=== PATIENT | female | born 1945 | race Caucasian/White ===

== ENCOUNTER 2022-05-11 19:33 | Inpatient (IN) ==
[2022-05-11] MEDS ORDERED: SODIUM CHLORIDE 0.9% 500 ML IV STA (20:13)
[2022-05-11] MEDS ORDERED: PANTOPRAZOLE 40 MG VIAL IV STA (20:13)
[2022-05-11] MEDS ORDERED: ONDANSETRON 4 MG/2 ML VIAL IV STA (20:13)
[2022-05-11 20:51] LABS: Basophils % 0.4 % (0.0-0.8); Eosinophils % 0.8 % (0.00-10.9); Hematocrit 29.3 VOL% (35.7-47.0); Hemoglobin 8.7 GM/DL (12.0-16.0); Immature Granulocytes % 0.2 %; Immature Granulocytes Absolute 0.01 #; Lymphocytes # 0.8 10*3/uL (1.4-4.0); Lymphocytes % 15.4 % (21.3-54.2); Mean Corpuscular HGB Conc 29.7 GM/DL (32-36); Mean Corpuscular Volume 80.9 FL (87-102); Mean Platelet Volume 11.6 FL (9.6-12.0); Monocytes # 0.4 10*3/uL (0.11-0.8); Monocytes % 8.1 % (1.7-12.7); Neutrophils % 75.1 % (38.7-73.9); Platelet Count 195 T/CUMM (130-400); Red Blood Count 3.62 MC/CUMM (3.8-5.5); Red Cell Distribution Width 15.7 % (9.3-17.3); White Blood Count 5.2 T/CUMM (4-12)
[2022-05-11 21:09] LABS: INR 3.4; PT Patient Result 34.2 SECS (10.5-12.0)
[2022-05-11 21:15] LABS: Alanine Aminotransferase 17 U/L (13-56); Albumin 3.5 G/DL (3.4-5.0); Alkaline Phosphatase 92 U/L (45-117); Aspartate Amino Transferase 19 U/L (0-37); Bilirubin,Total < 0.39 MG/DL (0.20-1.00); Blood Urea Nitrogen 29 MG/DL (7-18); Calcium 8.6 MG/DL (8.5-10.1); Carbon Dioxide 27 MMOL/L (21-32); Chloride 110 MMOL/L (98-107); Glucose 92 MG/DL (74-106); Osmolality,Calculated 286.3 MOS/KG (273-304); Potassium 4.1 MMOL/L (3.5-5.1); Sodium 141 MMOL/L (136-145); Total Protein 6.1 G/DL (6.4-8.2)
[2022-05-11] MEDS ORDERED: ONDANSETRON 4 MG/2 ML VIAL IV PRN (22:59)
[2022-05-11] MEDS ORDERED: GLUCAGON 1 MG VIAL IM PRN (22:59)
[2022-05-11] MEDS ORDERED: NICOTINE 21 MG/24 HR PATCH TRANSDERM PRN (22:59)
[2022-05-11] MEDS ORDERED: DEXTROSE 10% 250 ML BAG IV PRN (23:08)
[2022-05-12 00:48] LABS: Hematocrit 28.9 VOL% (35.7-47.0); Hemoglobin 8.8 GM/DL (12.0-16.0)
[2022-05-12] MEDS: LACTATED RINGERS 1,000 ML IV SCH ×3 (01:24→21:56)
[2022-05-12 05:37] LABS: Basophils % 0.6 % (0.0-0.8); Eosinophils # 0.1 10*3/uL (0.0-0.87); Eosinophils % 1.7 % (0.00-10.9); Hematocrit 26.2 VOL% (35.7-47.0); Hemoglobin 7.5 GM/DL (12.0-16.0); Immature Granulocytes % 0.6 %; Immature Granulocytes Absolute 0.02 #; Lymphocytes # 0.8 10*3/uL (1.4-4.0); Lymphocytes % 22.1 % (21.3-54.2); Mean Corpuscular HGB Conc 28.6 GM/DL (32-36); Mean Corpuscular Volume 82.4 FL (87-102); Mean Platelet Volume 12.6 FL (9.6-12.0); Monocytes # 0.3 10*3/uL (0.11-0.8); Monocytes % 8.9 % (1.7-12.7); Neutrophils % 66.1 % (38.7-73.9); Platelet Count 171 T/CUMM (130-400); Red Blood Count 3.18 MC/CUMM (3.8-5.5); Red Cell Distribution Width 15.5 % (9.3-17.3); White Blood Count 3.6 T/CUMM (4-12)
[2022-05-12] MEDS: THYROID 60 MG TABLET PO SCH (05:54)
[2022-05-12 06:00] LABS: Calcium 8.2 MG/DL (8.5-10.1); Potassium 3.8 MMOL/L (3.5-5.1)
[2022-05-12] MEDS ORDERED: SODIUM CHLORIDE 0.9% 1,000 ML IV PRN (07:30)
[2022-05-12] MEDS: PANTOPRAZOLE 40 MG VIAL IV SCH ×2 (10:00→20:23)
[2022-05-12] MEDS: CHOLECALCIFEROL 1,000 UNIT TABLET PO SCH (13:13)
[2022-05-12 13:44] LABS: INR 3.5; PT Patient Result 35.8 SECS (10.5-12.0)
[2022-05-12 22:47] LABS: Hematocrit 30.5 VOL% (35.7-47.0); Hemoglobin 9.1 GM/DL (12.0-16.0)
[2022-05-13 05:02] LABS: Basophils % 0.5 % (0.0-0.8); Eosinophils # 0.1 10*3/uL (0.0-0.87); Eosinophils % 2.4 % (0.00-10.9); Hematocrit 30.9 VOL% (35.7-47.0); Hemoglobin 9.4 GM/DL (12.0-16.0); Immature Granulocytes % 0.3 %; Immature Granulocytes Absolute 0.01 #; Lymphocytes # 0.7 10*3/uL (1.4-4.0); Lymphocytes % 19.8 % (21.3-54.2); Mean Corpuscular HGB Conc 30.4 GM/DL (32-36); Mean Corpuscular Volume 77.4 FL (87-102); Mean Platelet Volume 11.3 FL (9.6-12.0); Monocytes # 0.3 10*3/uL (0.11-0.8); Platelet Count 170 T/CUMM (130-400); Red Blood Count 3.99 MC/CUMM (3.8-5.5); Red Cell Distribution Width 18.1 % (9.3-17.3); White Blood Count 3.7 T/CUMM (4-12)
[2022-05-13] MEDS: THYROID 60 MG TABLET PO SCH (05:12)
[2022-05-13 05:24] LABS: INR 3.4; PT Patient Result 34.5 SECS (10.5-12.0)
[2022-05-13 06:38] LABS: Microcytosis 1+; Platelet Estimate Adequate
[2022-05-13] MEDS: LACTATED RINGERS 1,000 ML IV SCH ×3 (08:27→15:21)
[2022-05-13] MEDS: lisinopriL 10 MG TABLET PO SCH (09:12)
[2022-05-13] MEDS: CHOLECALCIFEROL 1,000 UNIT TABLET PO SCH (09:12)
[2022-05-13] MEDS: PANTOPRAZOLE 40 MG VIAL IV SCH ×2 (09:12→20:58)
[2022-05-14] MEDS: THYROID 60 MG TABLET PO SCH (05:13)
[2022-05-14 05:37] LABS: INR 2.1; PT Patient Result 21.6 SECS (10.5-12.0)
[2022-05-14] MEDS: CHOLECALCIFEROL 1,000 UNIT TABLET PO SCH (08:35)
[2022-05-14] MEDS: PANTOPRAZOLE 40 MG VIAL IV SCH (08:35)
[2022-05-14] MEDS: lisinopriL 10 MG TABLET PO SCH (08:35)
[2022-05-14 12:17] VITALS: BP 124/52
== END 2022-05-14 15:30 | disposition home or self-care (01) | DRG 378 ==
LOC: EDBD → EDUNIT# → N.ED 19:33 → N.TELEN 19:33 → SUATTDRO 05-12 07:13
PROVIDERS: ADMIT Internal Medicine; ATTEND Family Medicine

== ENCOUNTER 2022-08-16 15:15 | Inpatient (IN) ==
[2022-08-16 17:03] LABS: Alanine Aminotransferase 17 U/L (13-56); Albumin 3.4 G/DL (3.4-5.0); Alkaline Phosphatase 103 U/L (45-117); Aspartate Amino Transferase 19 U/L (0-37); Bilirubin,Total < 0.39 MG/DL (0.20-1.00); Blood Urea Nitrogen 28 MG/DL (7-18); Calcium 8.6 MG/DL (8.5-10.1); Carbon Dioxide 24 MMOL/L (21-32); Chloride 110 MMOL/L (98-107); Glucose 103 MG/DL (74-106); Osmolality,Calculated 284.4 MOS/KG (273-304); Potassium 4.2 MMOL/L (3.5-5.1); Sodium 140 MMOL/L (136-145); Total Protein 6.2 G/DL (6.4-8.2)
[2022-08-16 17:04] LABS: PT Patient Result 51.8 SECS (10.1-12.1)
[2022-08-16 17:10] LABS: INR 5.3
[2022-08-16 20:09] LABS: Basophils % 0.5 % (0.0-0.8); Eosinophils # 0.2 10*3/uL (0.0-0.87); Eosinophils % 2.8 % (0.00-10.9); Immature Granulocytes % 0.4 %; Immature Granulocytes Absolute 0.02 #; Lymphocytes # 0.7 10*3/uL (1.4-4.0); Lymphocytes % 12.1 % (21.3-54.2); Mean Corpuscular HGB Conc 26.9 GM/DL (32-36); Mean Corpuscular Volume 65.5 FL (87-102); Monocytes # 0.3 10*3/uL (0.11-0.8); Neutrophils % 78.2 % (38.7-73.9); Platelet Count 186 T/CUMM (130-400); Red Blood Count 2.67 MC/CUMM (3.8-5.5); Red Cell Distribution Width 17.9 % (9.3-17.3); White Blood Count 5.6 T/CUMM (4-12)
[2022-08-16 20:11] LABS: Hemoglobin 4.7 GM/DL (12.0-16.0)
[2022-08-16] MEDS ORDERED: SODIUM CHLORIDE 0.9% 1,000 ML IV PRN (20:11)
[2022-08-16 20:12] LABS: Hematocrit 17.5 VOL% (35.7-47.0)
[2022-08-16] MEDS ORDERED: PANTOPRAZOLE INJ 80 MG in SODIUM CHLORIDE 0.9% 100 ML IV ONE ×2 (20:12→23:30)
[2022-08-16] MEDS ORDERED: ACETAMINOPHEN 325 MG TABLET PO PRN (20:15)
[2022-08-16 21:29] LABS: Mucus,Urine Occasional /LPF (Occasional); RBC,Urine 1 /HPF (0-4); Squamous Epithelial Cell,Urine Occasional /HPF (0-10); Urine Appearance Clear (Clear); Urine Color Yellow (Yellow)
[2022-08-16 21:30] LABS: Bilirubin,Urine Negative (Negative); Blood, Urine Negative (Negative); Glucose,Urine (UA) Negative (Negative); Ketones,Urine 15 mg/dL (Negative); Nitrite,Urine Negative (Negative); Protein,Urine Negative (Negative); Urine Urobilinogen 0.2 eU/dL (<2.0)
[2022-08-16 21:51] LABS: % Iron Saturation 2.6 % (18-50); Ferritin 6.5 ng/mL (8-252)
[2022-08-16] MEDS ORDERED: PANTOPRAZOLE 40 MG VIAL IV ONE (23:26)
[2022-08-17] MEDS: LACTATED RINGERS 1,000 ML IV SCH ×3 (01:05→18:07)
[2022-08-17] MEDS: PANTOPRAZOLE INJ 200 MG in SODIUM CHLORIDE 0.9% 250 ML IV SCH (03:12)
[2022-08-17 05:19] LABS: Basophils % 0.9 % (0.0-0.8); Eosinophils # 0.2 10*3/uL (0.0-0.87); Eosinophils % 4.4 % (0.00-10.9); Hematocrit 22.6 VOL% (35.7-47.0); Hemoglobin 6.5 GM/DL (12.0-16.0); Immature Granulocytes % 0.7 %; Immature Granulocytes Absolute 0.03 #; Lymphocytes # 0.6 10*3/uL (1.4-4.0); Lymphocytes % 12.4 % (21.3-54.2); Mean Corpuscular HGB Conc 28.8 GM/DL (32-36); Mean Corpuscular Volume 72.2 FL (87-102); Monocytes # 0.4 10*3/uL (0.11-0.8); Monocytes % 8.2 % (1.7-12.7); Neutrophils % 73.4 % (38.7-73.9); Platelet Count 175 T/CUMM (130-400); Red Blood Count 3.13 MC/CUMM (3.8-5.5); White Blood Count 4.5 T/CUMM (4-12)
[2022-08-17 05:42] LABS: INR 4.5; PT Patient Result 44.9 SECS (10.1-12.1)
[2022-08-17 07:36] LABS: Hematocrit 28.4 VOL% (35.7-47.0)
[2022-08-17 07:45] LABS: Hemoglobin 8.4 GM/DL (12.0-16.0)
[2022-08-17] MEDS: FERRIC GLUCONATE COMPLEX 125 MG in SODIUM CHLORIDE 0.9% 100 ML IV SCH (10:13)
[2022-08-17 13:20] LABS: Hematocrit 26.2 VOL% (35.7-47.0); Hemoglobin 7.7 GM/DL (12.0-16.0)
[2022-08-17 19:37] LABS: Hematocrit 25.9 VOL% (35.7-47.0); Hemoglobin 7.6 GM/DL (12.0-16.0)
[2022-08-18 01:37] LABS: Hematocrit 22.9 VOL% (35.7-47.0); Hemoglobin 6.8 GM/DL (12.0-16.0)
[2022-08-18 01:45] LABS: PT Patient Result 39.7 SECS (10.1-12.1)
[2022-08-18 02:01] LABS: Calcium 8.2 MG/DL (8.5-10.1); Potassium 3.1 MMOL/L (3.5-5.1)
[2022-08-18 02:04] LABS: Risk Ratio 2.18; VLDL Cholesterol 10.4 MG/DL
[2022-08-18] MEDS ORDERED: SODIUM CHLORIDE 0.9% 1,000 ML IV PRN (02:05)
[2022-08-18] MEDS ORDERED: POTASSIUM CHLORIDE 20 MEQ TABLET PO ONE (02:30)
[2022-08-18] MEDS: LACTATED RINGERS 1,000 ML IV SCH (04:47)
[2022-08-18] MEDS: PANTOPRAZOLE INJ 200 MG in SODIUM CHLORIDE 0.9% 250 ML IV SCH (04:48)
[2022-08-18] MEDS: CHOLECALCIFEROL 1,000 UNIT TABLET PO SCH (08:48)
[2022-08-18] MEDS: lisinopriL 10 MG TABLET PO SCH (08:48)
[2022-08-18] MEDS: THYROID 60 MG TABLET PO SCH (08:50)
[2022-08-18] MEDS: FERRIC GLUCONATE COMPLEX 125 MG in SODIUM CHLORIDE 0.9% 100 ML IV SCH (11:03)
[2022-08-18 11:26] LABS: Basophils % 0.7 % (0.0-0.8); Eosinophils # 0.3 10*3/uL (0.0-0.87); Eosinophils % 4.7 % (0.00-10.9); Hematocrit 35.6 VOL% (35.7-47.0); Hemoglobin 10.9 GM/DL (12.0-16.0); Immature Granulocytes % 1.3 %; Immature Granulocytes Absolute 0.07 #; Lymphocytes # 0.6 10*3/uL (1.4-4.0); Lymphocytes % 11.8 % (21.3-54.2); Mean Corpuscular HGB Conc 30.6 GM/DL (32-36); Mean Corpuscular Volume 75.7 FL (87-102); Monocytes # 0.3 10*3/uL (0.11-0.8); Monocytes % 5.8 % (1.7-12.7); NRBC # 0.02 10*3/uL; Neutrophils % 75.7 % (38.7-73.9); Platelet Count 182 T/CUMM (130-400); Red Cell Distribution Width 22.2 % (9.3-17.3); White Blood Count 5.4 T/CUMM (4-12)
[2022-08-18 12:25] LABS: Anisocytosis 1+; Hypochromia 1+; Microcytosis 1+; Polychromasia 1+
[2022-08-18 12:26] LABS: Platelet Estimate Adequate
[2022-08-18 17:19] LABS: Hematocrit 34.4 VOL% (35.7-47.0); Hemoglobin 10.8 GM/DL (12.0-16.0)
[2022-08-18 23:19] LABS: Hemoglobin 9.5 GM/DL (12.0-16.0)
[2022-08-19 04:55] LABS: Hematocrit 30.2 VOL% (35.7-47.0); Hemoglobin 9.4 GM/DL (12.0-16.0)
[2022-08-19 05:07] LABS: INR 1.9; PT Patient Result 19.8 SECS (10.1-12.1)
[2022-08-19 05:22] LABS: Calcium 8.3 MG/DL (8.5-10.1); Potassium 3.3 MMOL/L (3.5-5.1)
[2022-08-19] MEDS ORDERED: POTASSIUM CHLORIDE 20 MEQ TABLET PO ONE (07:27)
[2022-08-19] MEDS: LACTATED RINGERS 1,000 ML IV SCH (08:20)
[2022-08-19] MEDS: PANTOPRAZOLE INJ 200 MG in SODIUM CHLORIDE 0.9% 250 ML IV SCH (08:24)
[2022-08-19] MEDS: THYROID 60 MG TABLET PO SCH (10:32)
[2022-08-19] MEDS: CHOLECALCIFEROL 1,000 UNIT TABLET PO SCH (10:32)
[2022-08-19] MEDS: lisinopriL 10 MG TABLET PO SCH (10:32)
[2022-08-19] MEDS: FERRIC GLUCONATE COMPLEX 125 MG in SODIUM CHLORIDE 0.9% 100 ML IV SCH (10:32)
[2022-08-19 11:33] LABS: Hematocrit 33.9 VOL% (35.7-47.0); Hemoglobin 10.6 GM/DL (12.0-16.0)
[2022-08-19 16:53] LABS: Hematocrit 35.2 VOL% (35.7-47.0); Hemoglobin 10.8 GM/DL (12.0-16.0)
[2022-08-20 04:49] LABS: Basophils % 0.6 % (0.0-0.8); Eosinophils # 0.4 10*3/uL (0.0-0.87); Eosinophils % 7.3 % (0.00-10.9); Hematocrit 31.6 VOL% (35.7-47.0); Hemoglobin 9.8 GM/DL (12.0-16.0); Immature Granulocytes % 0.6 %; Immature Granulocytes Absolute 0.03 #; Lymphocytes # 0.8 10*3/uL (1.4-4.0); Lymphocytes % 14.6 % (21.3-54.2); Mean Corpuscular Volume 76.3 FL (87-102); Monocytes # 0.4 10*3/uL (0.11-0.8); Monocytes % 7.5 % (1.7-12.7); Neutrophils % 69.4 % (38.7-73.9); Platelet Count 163 T/CUMM (130-400); Red Blood Count 4.14 MC/CUMM (3.8-5.5); Red Cell Distribution Width 24.4 % (9.3-17.3); White Blood Count 5.4 T/CUMM (4-12)
[2022-08-20 05:03] LABS: Calcium 8.7 MG/DL (8.5-10.1); Osmolality,Calculated 283.1 MOS/KG (273-304); Potassium 3.4 MMOL/L (3.5-5.1)
[2022-08-20 05:10] LABS: INR 1.3; PT Patient Result 14.6 SECS (10.1-12.1)
[2022-08-20 05:16] LABS: Hypochromia Slight; Microcytosis 1+; Platelet Estimate Normal
[2022-08-20] MEDS ORDERED: POTASSIUM CHLORIDE 20 MEQ TABLET PO ONE (08:06)
[2022-08-20] MEDS: LACTATED RINGERS 1,000 ML IV SCH (10:07)
[2022-08-20] MEDS: CHOLECALCIFEROL 1,000 UNIT TABLET PO SCH (10:11)
[2022-08-20] MEDS: THYROID 60 MG TABLET PO SCH (10:11)
[2022-08-20] MEDS: lisinopriL 20 MG TABLET PO SCH (10:12)
[2022-08-20] MEDS: FERRIC GLUCONATE COMPLEX 125 MG in SODIUM CHLORIDE 0.9% 100 ML IV SCH (10:12)
[2022-08-20] MEDS: PANTOPRAZOLE INJ 200 MG in SODIUM CHLORIDE 0.9% 250 ML IV SCH (10:13)
[2022-08-20] MEDS: HEPARIN DRIP 25,000 UNITS/500 ML PREMIX IV SCH (14:54)
[2022-08-21 03:18] LABS: Basophils % 0.6 % (0.0-0.8); Eosinophils # 0.4 10*3/uL (0.0-0.87); Eosinophils % 7.8 % (0.00-10.9); Hematocrit 31.1 VOL% (35.7-47.0); Hemoglobin 9.5 GM/DL (12.0-16.0); Immature Granulocytes % 0.6 %; Immature Granulocytes Absolute 0.03 #; Lymphocytes # 0.9 10*3/uL (1.4-4.0); Lymphocytes % 17.1 % (21.3-54.2); Mean Corpuscular HGB Conc 30.5 GM/DL (32-36); Mean Corpuscular Volume 77.6 FL (87-102); Monocytes # 0.4 10*3/uL (0.11-0.8); Neutrophils % 65.9 % (38.7-73.9); Platelet Count 166 T/CUMM (130-400); Red Blood Count 4.01 MC/CUMM (3.8-5.5); Red Cell Distribution Width 25.6 % (9.3-17.3)
[2022-08-21 03:27] LABS: INR 1.1; PT Patient Result 12.2 SECS (10.1-12.1)
[2022-08-21 03:34] LABS: Calcium 8.2 MG/DL (8.5-10.1); Osmolality,Calculated 281.3 MOS/KG (273-304); Potassium 3.3 MMOL/L (3.5-5.1)
[2022-08-21] MEDS ORDERED: POTASSIUM CHLORIDE 20 MEQ TABLET PO ONE (07:34)
[2022-08-21] MEDS ORDERED: MAGNESIUM OXIDE 400 MG TABLET PO ONE (07:36)
[2022-08-21] MEDS: LACTATED RINGERS 1,000 ML IV SCH (08:47)
[2022-08-21] MEDS: CHOLECALCIFEROL 1,000 UNIT TABLET PO SCH (08:51)
[2022-08-21] MEDS: THYROID 60 MG TABLET PO SCH (08:52)
[2022-08-21] MEDS: lisinopriL 20 MG TABLET PO SCH ×2 (08:55→20:46)
[2022-08-21] MEDS: PANTOPRAZOLE 40 MG VIAL IV SCH ×2 (08:58→20:46)
[2022-08-21] MEDS: FERRIC GLUCONATE COMPLEX 125 MG in SODIUM CHLORIDE 0.9% 100 ML IV SCH (08:59)
[2022-08-21] MEDS ORDERED: BISACODYL 5 MG TABLET PO ONE (12:00)
[2022-08-21] MEDS: HEPARIN DRIP 25,000 UNITS/500 ML PREMIX IV SCH (16:09)
[2022-08-21] MEDS ORDERED: POLYETHYLENE GLYCOL POWDER 255 GM BOTTLE PO ONE (18:00)
[2022-08-22 06:03] LABS: Basophils % 0.6 % (0.0-0.8); Eosinophils # 0.4 10*3/uL (0.0-0.87); Hematocrit 32.4 VOL% (35.7-47.0); Hemoglobin 9.8 GM/DL (12.0-16.0); Immature Granulocytes % 0.4 %; Immature Granulocytes Absolute 0.02 #; Lymphocytes # 0.7 10*3/uL (1.4-4.0); Lymphocytes % 15.8 % (21.3-54.2); Mean Corpuscular HGB Conc 30.2 GM/DL (32-36); Mean Corpuscular Volume 78.6 FL (87-102); Monocytes # 0.4 10*3/uL (0.11-0.8); Monocytes % 9.1 % (1.7-12.7); Neutrophils % 66.1 % (38.7-73.9); Platelet Count 163 T/CUMM (130-400); Red Blood Count 4.12 MC/CUMM (3.8-5.5); Red Cell Distribution Width 26.5 % (9.3-17.3); White Blood Count 4.6 T/CUMM (4-12)
[2022-08-22 06:15] LABS: PT Patient Result 11.3 SECS (10.1-12.1)
[2022-08-22 06:20] LABS: Calcium 8.8 MG/DL (8.5-10.1); Osmolality,Calculated 281.1 MOS/KG (273-304); Potassium 3.4 MMOL/L (3.5-5.1)
[2022-08-22] MEDS: POTASSIUM CHLORIDE RIDER 10 MEQ/100 ML PREMIX IV SCH ×2 (07:57→10:35)
[2022-08-22] MEDS ORDERED: propofoL 200 MG/20 ML VIAL IV ONE (09:27)
[2022-08-22] MEDS ORDERED: LIDOCAINE 2% 5 ML VIAL ONE (09:27)
[2022-08-22] MEDS ORDERED: ONDANSETRON 4 MG/2 ML VIAL ONE (09:28)
[2022-08-22] MEDS: PANTOPRAZOLE 40 MG VIAL IV SCH ×2 (11:06→21:18)
[2022-08-22] MEDS: FERRIC GLUCONATE COMPLEX 125 MG in SODIUM CHLORIDE 0.9% 100 ML IV SCH (11:12)
[2022-08-22] MEDS: POTASSIUM CHLORIDE 20 MEQ TABLET PO SCH ×2 (12:28→21:18)
[2022-08-22] MEDS: lisinopriL 20 MG TABLET PO SCH ×2 (12:28→21:18)
[2022-08-22] MEDS: CHOLECALCIFEROL 1,000 UNIT TABLET PO SCH (12:28)
[2022-08-22] MEDS: THYROID 60 MG TABLET PO SCH (12:29)
[2022-08-22] MEDS: MAGNESIUM OXIDE 400 MG TABLET PO SCH (12:31)
[2022-08-22] MEDS: hydrALAZINE 25 MG TABLET PO SCH ×3 (12:31→21:18)
[2022-08-22] MEDS ORDERED: HEPARIN 5,000 UNIT/1 ML VIAL IV ONE (13:38)
[2022-08-22] MEDS: HEPARIN DRIP 25,000 UNITS/500 ML PREMIX IV SCH (13:52)
[2022-08-22] MEDS ORDERED: metroNIDAZOLE INJ 500 MG/100 ML PREMIX IV ONE (15:12)
[2022-08-22] MEDS ORDERED: LEVOFLOXACIN INJ 500 MG/100 ML PREMIX IV ONE (15:12)
[2022-08-23 05:57] LABS: INR 1.1; PT Patient Result 11.6 SECS (10.1-12.1)
[2022-08-23 06:04] LABS: Calcium 8.8 MG/DL (8.5-10.1); Osmolality,Calculated 280.1 MOS/KG (273-304)
[2022-08-23 06:32] LABS: Basophils % 0.6 % (0.0-0.8); Eosinophils # 0.2 10*3/uL (0.0-0.87); Eosinophils % 3.7 % (0.00-10.9); Immature Granulocytes % 0.6 %; Immature Granulocytes Absolute 0.03 #; Lymphocytes # 0.7 10*3/uL (1.4-4.0)
[2022-08-23] MEDS ORDERED: ONDANSETRON 4 MG/2 ML VIAL ONE (06:35)
[2022-08-23] MEDS ORDERED: SEVOFLURANE 1 UNIT/15 MINUTE INH ONE ×6 (06:35→08:26)
[2022-08-23] MEDS ORDERED: fentaNYL 100 MCG/2 ML VIAL ONE (06:35)
[2022-08-23] MEDS ORDERED: LIDOCAINE 2% 5 ML VIAL ONE ×2 (06:35→06:44)
[2022-08-23] MEDS ORDERED: propofoL 200 MG/20 ML VIAL IV ONE (06:35)
[2022-08-23] MEDS ORDERED: MIDAZOLAM 2 MG/2 ML VIAL ONE (06:35)
[2022-08-23] MEDS ORDERED: ROCURONIUM 50 MG/5 ML VIAL IV ONE (06:35)
[2022-08-23] MEDS ORDERED: ROPIVACAINE 0.5% 30 ML VIAL ONE (06:44)
[2022-08-23] MEDS ORDERED: DEXAMETHASONE 4 MG/1 ML VIAL ONE (06:44)
[2022-08-23 06:55] LABS: Hematocrit 38.7 VOL% (35.7-47.0); Lymphocytes % 12.7 % (21.3-54.2); Mean Corpuscular HGB Conc 29.7 GM/DL (32-36); Mean Corpuscular Volume 80.6 FL (87-102); Monocytes # 0.3 10*3/uL (0.11-0.8); Monocytes % 6.7 % (1.7-12.7); Neutrophils % 75.7 % (38.7-73.9); Platelet Count 175 T/CUMM (130-400); Red Cell Distribution Width 27.9 % (9.3-17.3); White Blood Count 5.1 T/CUMM (4-12)
[2022-08-23 06:59] LABS: Hemoglobin 11.5 GM/DL (12.0-16.0)
[2022-08-23] MEDS ORDERED: LACTATED RINGERS 1,000 ML IV ONE ×2 (07:33→08:26)
[2022-08-23] MEDS ORDERED: SODIUM CHLORIDE 0.9% 250 ML IV ONE (07:33)
[2022-08-23] MEDS ORDERED: PHENYLEPHRINE 10 MG/1 ML VIAL IV ONE (07:34)
[2022-08-23] MEDS ORDERED: LEVOFLOXACIN INJ 500 MG/100 ML PREMIX IV ONE ×2 (07:39→08:00)
[2022-08-23] MEDS ORDERED: INDOCYANINE GREEN 25 MG VIAL IV ONE (08:03)
[2022-08-23] MEDS ORDERED: NEOSTIGMINE 10 MG/10 ML VIAL ONE (08:35)
[2022-08-23] MEDS ORDERED: GLYCOPYRROLATE 0.4 MG/2 ML VIAL ONE ×2 (08:35→09:01)
[2022-08-23 09:09] LABS: Bilirubin,Urine Negative (Negative); Blood, Urine Small mg/dL (Negative); Glucose,Urine (UA) Negative (Negative); Ketones,Urine 5 mg/dL (Negative); Mucus,Urine Occasional /LPF (Occasional); Nitrite,Urine Negative (Negative); Protein,Urine Negative (Negative); RBC,Urine <1 /HPF (0-4); Squamous Epithelial Cell,Urine Occasional /HPF (0-10); Urine Appearance CLEAR (Clear); Urine Color Straw (Yellow); Urine Specific Gravity 1.011 (1.001-1.035); Urine Urobilinogen < 2.0 eU/dL (<2.0)
[2022-08-23] MEDS: THYROID 60 MG TABLET PO SCH (11:01)
[2022-08-23] MEDS: hydrALAZINE 25 MG TABLET PO SCH ×3 (11:01→22:37)
[2022-08-23] MEDS: POTASSIUM CHLORIDE 20 MEQ TABLET PO SCH ×2 (11:03→22:37)
[2022-08-23] MEDS: FERRIC GLUCONATE COMPLEX 125 MG in SODIUM CHLORIDE 0.9% 100 ML IV SCH (11:04)
[2022-08-23] MEDS: CHOLECALCIFEROL 1,000 UNIT TABLET PO SCH (11:05)
[2022-08-23] MEDS: MAGNESIUM OXIDE 400 MG TABLET PO SCH (11:05)
[2022-08-23] MEDS: PANTOPRAZOLE 40 MG VIAL IV SCH ×2 (11:06→20:29)
[2022-08-23] MEDS: lisinopriL 20 MG TABLET PO SCH ×2 (11:06→22:37)
[2022-08-23] MEDS: LACTATED RINGERS 1,000 ML IV SCH ×2 (11:28→18:15)
[2022-08-23] MEDS: HYDROmorphone 1 MG/1 ML SYRINGE IV PRN ×3 (12:02→20:28)
[2022-08-23] MEDS: metroNIDAZOLE INJ 500 MG/100 ML PREMIX IV SCH ×2 (15:34→22:43)
[2022-08-23] MEDS: hydrALAZINE 20 MG/1 ML VIAL IV PRN (21:57)
[2022-08-24] MEDS: LACTATED RINGERS 1,000 ML IV SCH ×3 (00:25→18:08)
[2022-08-24] MEDS: HYDROmorphone 1 MG/1 ML SYRINGE IV PRN ×5 (02:01→21:34)
[2022-08-24 05:31] LABS: INR 1.1; PT Patient Result 12.3 SECS (10.1-12.1)
[2022-08-24 05:48] LABS: Calcium 8.8 MG/DL (8.5-10.1); Osmolality,Calculated 276.5 MOS/KG (273-304); Potassium 3.7 MMOL/L (3.5-5.1)
[2022-08-24 05:56] LABS: Basophils % 0.1 % (0.0-0.8); Eosinophils % 0.1 % (0.00-10.9); Hematocrit 40.3 VOL% (35.7-47.0); Hemoglobin 12.3 GM/DL (12.0-16.0); Immature Granulocytes % 0.5 %; Immature Granulocytes Absolute 0.05 #; Lymphocytes # 0.5 10*3/uL (1.4-4.0); Lymphocytes % 5.5 % (21.3-54.2); Mean Corpuscular HGB Conc 30.5 GM/DL (32-36); Mean Corpuscular Volume 79.6 FL (87-102); Monocytes # 0.6 10*3/uL (0.11-0.8); Monocytes % 6.2 % (1.7-12.7); Neutrophils % 87.6 % (38.7-73.9); Platelet Count 186 T/CUMM (130-400); Red Blood Count 5.06 MC/CUMM (3.8-5.5); Red Cell Distribution Width 28.8 % (9.3-17.3); White Blood Count 9.2 T/CUMM (4-12)
[2022-08-24] MEDS ORDERED: metroNIDAZOLE INJ 500 MG/100 ML PREMIX IV ONE (06:00)
[2022-08-24] MEDS ORDERED: LEVOFLOXACIN INJ 500 MG/100 ML PREMIX IV ONE (06:30)
[2022-08-24] MEDS: PANTOPRAZOLE 40 MG VIAL IV SCH ×2 (08:08→21:30)
[2022-08-24] MEDS: POTASSIUM CHLORIDE 20 MEQ TABLET PO SCH ×2 (08:09→21:29)
[2022-08-24] MEDS: CHOLECALCIFEROL 1,000 UNIT TABLET PO SCH (08:09)
[2022-08-24] MEDS: MAGNESIUM OXIDE 400 MG TABLET PO SCH (08:09)
[2022-08-24] MEDS: hydrALAZINE 25 MG TABLET PO SCH (08:09)
[2022-08-24] MEDS: THYROID 60 MG TABLET PO SCH (08:09)
[2022-08-24] MEDS: lisinopriL 20 MG TABLET PO SCH ×2 (08:09→21:29)
[2022-08-24] MEDS: FERRIC GLUCONATE COMPLEX 125 MG in SODIUM CHLORIDE 0.9% 100 ML IV SCH (08:26)
[2022-08-24] MEDS: HEPARIN DRIP 25,000 UNITS/500 ML PREMIX IV SCH ×3 (09:30→11:30)
[2022-08-24] MEDS: WARFARIN 5 MG TABLET PO SCH (18:17)
[2022-08-25] MEDS: HYDROmorphone 1 MG/1 ML SYRINGE IV PRN ×3 (01:50→20:39)
[2022-08-25] MEDS: hydrALAZINE 20 MG/1 ML VIAL IV PRN (04:36)
[2022-08-25 06:04] LABS: Basophils % 0.3 % (0.0-0.8); Eosinophils # 0.1 10*3/uL (0.0-0.87); Eosinophils % 0.5 % (0.00-10.9); Hemoglobin 11.4 GM/DL (12.0-16.0); Immature Granulocytes % 0.6 %; Immature Granulocytes Absolute 0.06 #; Lymphocytes # 0.6 10*3/uL (1.4-4.0); Lymphocytes % 6.4 % (21.3-54.2); Mean Corpuscular Volume 81.2 FL (87-102); Monocytes # 0.7 10*3/uL (0.11-0.8); Monocytes % 7.3 % (1.7-12.7); Neutrophils % 84.9 % (38.7-73.9); Platelet Count 181 T/CUMM (130-400); Red Blood Count 4.68 MC/CUMM (3.8-5.5); Red Cell Distribution Width 28.5 % (9.3-17.3); White Blood Count 9.7 T/CUMM (4-12)
[2022-08-25 06:05] LABS: Calcium 8.3 MG/DL (8.5-10.1); Osmolality,Calculated 270.8 MOS/KG (273-304); Potassium 3.9 MMOL/L (3.5-5.1)
[2022-08-25 06:11] LABS: INR 1.6
[2022-08-25 06:36] LABS: Hypochromia Slight; Microcytosis 1+
[2022-08-25 06:37] LABS: Ovalocytes Slight; Platelet Estimate Adequate; Polychromasia Slight; Spherocytes Slight
[2022-08-25] MEDS: LACTATED RINGERS 1,000 ML IV SCH ×2 (08:53→09:15)
[2022-08-25] MEDS: CHOLECALCIFEROL 1,000 UNIT TABLET PO SCH (08:53)
[2022-08-25] MEDS: lisinopriL 20 MG TABLET PO SCH ×3 (08:54→20:40)
[2022-08-25] MEDS: POTASSIUM CHLORIDE 20 MEQ TABLET PO SCH ×3 (08:54→20:40)
[2022-08-25] MEDS: THYROID 60 MG TABLET PO SCH ×2 (08:54→13:43)
[2022-08-25] MEDS: MAGNESIUM OXIDE 400 MG TABLET PO SCH (08:54)
[2022-08-25] MEDS: PANTOPRAZOLE 40 MG VIAL IV SCH ×2 (08:55→20:41)
[2022-08-25] MEDS: MORPHINE 2 MG/1 ML SYRINGE IV PRN (09:06)
[2022-08-25] MEDS: HEPARIN DRIP 25,000 UNITS/500 ML PREMIX IV SCH ×2 (13:06→21:06)
[2022-08-25] MEDS: WARFARIN 5 MG TABLET PO SCH (17:31)
[2022-08-26] MEDS: HYDROmorphone 1 MG/1 ML SYRINGE IV PRN ×2 (02:39→09:17)
[2022-08-26] MEDS: LACTATED RINGERS 1,000 ML IV SCH ×3 (04:04→17:29)
[2022-08-26 05:27] LABS: Basophils % 0.4 % (0.0-0.8); Eosinophils # 0.1 10*3/uL (0.0-0.87); Eosinophils % 0.9 % (0.00-10.9); Hematocrit 33.3 VOL% (35.7-47.0); Hemoglobin 10.1 GM/DL (12.0-16.0); Immature Granulocytes % 0.6 %; Immature Granulocytes Absolute 0.05 #; Lymphocytes # 0.6 10*3/uL (1.4-4.0); Lymphocytes % 7.3 % (21.3-54.2); Mean Corpuscular HGB Conc 30.3 GM/DL (32-36); Mean Corpuscular Volume 80.8 FL (87-102); Monocytes # 0.6 10*3/uL (0.11-0.8); Monocytes % 6.8 % (1.7-12.7); Platelet Count 186 T/CUMM (130-400); Red Blood Count 4.12 MC/CUMM (3.8-5.5); Red Cell Distribution Width 27.9 % (9.3-17.3); White Blood Count 8.1 T/CUMM (4-12)
[2022-08-26 05:51] LABS: Calcium 8.5 MG/DL (8.5-10.1); Osmolality,Calculated 274.5 MOS/KG (273-304); Potassium 3.1 MMOL/L (3.5-5.1)
[2022-08-26 05:59] LABS: Hypochromia Slight; Microcytosis 1+; Ovalocytes Slight; Platelet Estimate Adequate; Spherocytes Slight; Target Cells Slight
[2022-08-26 07:15] LABS: INR 3.2; PT Patient Result 32.3 SECS (10.1-12.1)
[2022-08-26] MEDS: MAGNESIUM OXIDE 400 MG TABLET PO SCH (09:12)
[2022-08-26] MEDS: lisinopriL 20 MG TABLET PO SCH ×2 (09:12→21:50)
[2022-08-26] MEDS: CHOLECALCIFEROL 1,000 UNIT TABLET PO SCH (09:12)
[2022-08-26] MEDS: POTASSIUM CHLORIDE 20 MEQ TABLET PO SCH ×4 (09:12→21:50)
[2022-08-26] MEDS: THYROID 60 MG TABLET PO SCH (09:12)
[2022-08-26] MEDS: PANTOPRAZOLE 40 MG VIAL IV SCH ×2 (09:13→21:33)
[2022-08-26] MEDS: ONDANSETRON 4 MG/2 ML VIAL IV PRN (12:49)
[2022-08-26] MEDS ORDERED: CALCIUM CARBONATE CHEW 500 MG TABLET PO PRN (17:09)
[2022-08-26] MEDS: MORPHINE 2 MG/1 ML SYRINGE IV PRN ×2 (17:27→21:33)
[2022-08-26] MEDS ORDERED: WARFARIN 2.5 MG TABLET PO SCH (18:00)
[2022-08-27 05:40] LABS: Basophils % 0.3 % (0.0-0.8); Eosinophils # 0.2 10*3/uL (0.0-0.87); Eosinophils % 2.1 % (0.00-10.9); Hematocrit 33.7 VOL% (35.7-47.0); Hemoglobin 10.2 GM/DL (12.0-16.0); Immature Granulocytes % 1.3 %; Immature Granulocytes Absolute 0.09 #; Lymphocytes # 0.7 10*3/uL (1.4-4.0); Lymphocytes % 9.5 % (21.3-54.2); Mean Corpuscular HGB Conc 30.3 GM/DL (32-36); Mean Platelet Volume 11.3 FL (9.6-12.0); Monocytes # 0.6 10*3/uL (0.11-0.8); Monocytes % 8.5 % (1.7-12.7); Neutrophils % 78.3 % (38.7-73.9); Platelet Count 234 T/CUMM (130-400); Red Blood Count 4.16 MC/CUMM (3.8-5.5); Red Cell Distribution Width 27.8 % (9.3-17.3); White Blood Count 7.1 T/CUMM (4-12)
[2022-08-27 05:41] LABS: INR 4.8; PT Patient Result 47.3 SECS (10.1-12.1)
[2022-08-27 05:43] LABS: Osmolality,Calculated 279.3 MOS/KG (273-304); Potassium 3.6 MMOL/L (3.5-5.1)
[2022-08-27 06:24] LABS: Anisocytosis 1+; Macrocytosis Slight; Platelet Estimate Normal
[2022-08-27] MEDS: MORPHINE 2 MG/1 ML SYRINGE IV PRN ×3 (09:44→20:10)
[2022-08-27] MEDS: PANTOPRAZOLE 40 MG VIAL IV SCH ×2 (09:45→20:08)
[2022-08-27] MEDS: LACTATED RINGERS 1,000 ML IV SCH ×2 (09:45→20:18)
[2022-08-27] MEDS: POTASSIUM CHLORIDE 20 MEQ TABLET PO SCH ×2 (15:05→20:10)
[2022-08-27] MEDS: THYROID 60 MG TABLET PO SCH (15:05)
[2022-08-27] MEDS: MAGNESIUM OXIDE 400 MG TABLET PO SCH (15:05)
[2022-08-27] MEDS: lisinopriL 20 MG TABLET PO SCH ×2 (15:05→20:10)
[2022-08-27] MEDS: CHOLECALCIFEROL 1,000 UNIT TABLET PO SCH (15:06)
[2022-08-27] MEDS: ONDANSETRON 4 MG/2 ML VIAL IV PRN (20:08)
[2022-08-28] MEDS: MORPHINE 2 MG/1 ML SYRINGE IV PRN ×3 (01:12→20:00)
[2022-08-28] MEDS: LACTATED RINGERS 1,000 ML IV SCH ×2 (01:12→15:44)
[2022-08-28 05:49] LABS: Basophils % 0.3 % (0.0-0.8); Eosinophils # 0.1 10*3/uL (0.0-0.87); Eosinophils % 2.4 % (0.00-10.9); Hematocrit 34.5 VOL% (35.7-47.0); Hemoglobin 10.5 GM/DL (12.0-16.0); Immature Granulocytes % 0.3 %; Immature Granulocytes Absolute 0.02 #; Lymphocytes # 0.5 10*3/uL (1.4-4.0); Mean Corpuscular HGB Conc 30.4 GM/DL (32-36); Mean Corpuscular Volume 81.2 FL (87-102); Mean Platelet Volume 10.8 FL (9.6-12.0); Monocytes # 0.5 10*3/uL (0.11-0.8); Monocytes % 8.1 % (1.7-12.7); Neutrophils % 80.9 % (38.7-73.9); Platelet Count 267 T/CUMM (130-400); Red Blood Count 4.25 MC/CUMM (3.8-5.5); Red Cell Distribution Width 27.6 % (9.3-17.3); White Blood Count 5.8 T/CUMM (4-12)
[2022-08-28 06:04] LABS: INR 3.5; PT Patient Result 35.6 SECS (10.1-12.1)
[2022-08-28 06:05] LABS: Calcium 7.7 MG/DL (8.5-10.1); Osmolality,Calculated 277.4 MOS/KG (273-304); Potassium 3.5 MMOL/L (3.5-5.1)
[2022-08-28 07:11] LABS: Anisocytosis 1+; Platelet Estimate Normal; Poikilocytosis 1+
[2022-08-28] MEDS ORDERED: MAGNESIUM SULF RIDER 2 GM/50 ML PREMIX IV ONE (07:56)
[2022-08-28] MEDS ORDERED: POTASSIUM CHLORIDE 20 MEQ TABLET PO ONE (07:57)
[2022-08-28] MEDS: PANTOPRAZOLE 40 MG VIAL IV SCH ×2 (09:10→20:43)
[2022-08-28] MEDS: THYROID 60 MG TABLET PO SCH (09:10)
[2022-08-28] MEDS: lisinopriL 20 MG TABLET PO SCH ×2 (09:10→20:42)
[2022-08-28] MEDS: MAGNESIUM OXIDE 400 MG TABLET PO SCH (09:10)
[2022-08-28] MEDS: POTASSIUM CHLORIDE 20 MEQ TABLET PO SCH (09:11)
[2022-08-28] MEDS: CHOLECALCIFEROL 1,000 UNIT TABLET PO SCH (09:11)
[2022-08-28] MEDS ORDERED: WARFARIN 5 MG TABLET PO SCH (18:00)
[2022-08-29] MEDS: MORPHINE 2 MG/1 ML SYRINGE IV PRN (02:47)
[2022-08-29 05:29] LABS: Basophils % 0.3 % (0.0-0.8); Eosinophils # 0.1 10*3/uL (0.0-0.87); Eosinophils % 1.3 % (0.00-10.9); Hematocrit 35.3 VOL% (35.7-47.0); Hemoglobin 10.6 GM/DL (12.0-16.0); Immature Granulocytes % 0.7 %; Immature Granulocytes Absolute 0.04 #; Lymphocytes # 0.5 10*3/uL (1.4-4.0); Lymphocytes % 8.1 % (21.3-54.2); Mean Corpuscular Volume 79.9 FL (87-102); Mean Platelet Volume 10.8 FL (9.6-12.0); Monocytes # 0.5 10*3/uL (0.11-0.8); Monocytes % 7.8 % (1.7-12.7); Neutrophils % 81.8 % (38.7-73.9); Platelet Count 326 T/CUMM (130-400); Red Blood Count 4.42 MC/CUMM (3.8-5.5); White Blood Count 6.1 T/CUMM (4-12)
[2022-08-29 05:44] LABS: INR 3.9; PT Patient Result 38.9 SECS (10.1-12.1)
[2022-08-29 05:57] LABS: Calcium 7.9 MG/DL (8.5-10.1); Osmolality,Calculated 278.3 MOS/KG (273-304); Potassium 3.4 MMOL/L (3.5-5.1)
[2022-08-29 05:59] LABS: Hypochromia Slight; Microcytosis 1+; Ovalocytes Slight
[2022-08-29 06:00] LABS: Platelet Estimate Normal; Polychromasia Slight; Spherocytes Slight
[2022-08-29] MEDS: LACTATED RINGERS 1,000 ML IV SCH ×3 (07:18→12:35)
[2022-08-29] MEDS ORDERED: POTASSIUM CHLORIDE 20 MEQ TABLET PO ONE (07:48)
[2022-08-29] MEDS: PANTOPRAZOLE 40 MG VIAL IV SCH (08:59)
[2022-08-29] MEDS: CHOLECALCIFEROL 1,000 UNIT TABLET PO SCH (08:59)
[2022-08-29] MEDS: THYROID 60 MG TABLET PO SCH (09:00)
[2022-08-29] MEDS: lisinopriL 20 MG TABLET PO SCH (09:00)
[2022-08-29] MEDS: MAGNESIUM OXIDE 400 MG TABLET PO SCH (09:01)
[2022-08-29] MEDS: POTASSIUM CHLORIDE 20 MEQ TABLET PO SCH (09:02)
[2022-08-29 15:59] VITALS: BP 122/58
[2022-08-29] MEDS ORDERED: WARFARIN 3 MG TABLET PO SCH (18:00)
== END 2022-08-29 16:20 | disposition swing bed (61) | DRG 330 ==
LOC: N.ED 15:15 → SUATTDRO 21:26 → N.EDINP 21:26 → N.2W 08-17 01:38 → N.TELES 08-17 05:35 → N.3E 08-23 11:46
PROVIDERS: ADMIT Internal Medicine; ATTEND Hospitalist
PROC: COLONBX (2022-08-22 07:35)